=== PATIENT | female | born 1975 | race Caucasian/White ===

== ENCOUNTER 2018-02-17 20:44 | Emergency (ER) | payer MEDICARE, MEDICAID ==
--- NOTE | 2018-02-17 22:08 | EDM.PDOC ---
ED HPI GENERAL MEDICAL PROBLEM - General Chief Complaint: Genitourinary Problem Stated Complaint: CATH Time Seen by Provider: 02/17/18 21:20 Source of Information: Reports: Patient, RN Notes Reviewed - History of Present Illness INITIAL COMMENTS - FREE TEXT/NARRATIVE: 43-year-old female paraplegic who self catheterizes on a regular basis is having difficulty getting the catheter to enter into the bladder. She has had some moderate difficulties over the past few weeks, and an evaluation at [facility] recently showed some foreign material in the bladder felt to be blood clots. She was on an antibiotic and it seemed to be better, she catheterized herself at 2:30 this afternoon without problem, but this evening she cannot get the catheter into the bladder. She has no symptoms because she cannot feel anything below the chest level. No fevers or chills. Onset: Unknown/Unsure Associated Symptoms: Denies: Fever/Chills, Nausea/Vomiting, Shortness of Breath - Related Data Allergies Allergy/AdvReac Type Severity Reaction Status Date / Time No Known Allergies Allergy Verified 02/17/18 21:16 Home Meds: Home Meds NK [No Known Home Meds] 02/17/18 [History] Past Medical History HEENT History: Reports: Impaired Vision Gastrointestinal History: Reports: Hemorrhoids, Other (See Below) Other Gastrointestinal History: ronaldo colon Genitourinary History: Reports: UTI, Recurrent, Other (See Below) Other Genitourinary History: self cath Musculoskeletal History: Reports: Fracture, Other (See Below) Other Musculoskeletal History: fx femur, tib fib paraplegic - Infectious Disease History Infectious Disease History: Reports: Chicken Pox - Past Surgical History Musculoskeletal Surgical History: Reports: Other (See Below) Other Musculoskeletal Surgeries/Procedures:: back surgery Social & Family History - Tobacco Use Smoking Status *Q: Never Smoker Second Hand Smoke Exposure: No - Caffeine Use Caffeine Use: Reports: Coffee - Recreational Drug Use Recreational Drug Use: No ED ROS GENERAL - Review of Systems Review Of Systems: See Below Constitutional: Denies: Fever, Chills HEENT: Reports: No Symptoms Respiratory: Denies: Shortness of Breath, Cough Cardiovascular: Denies: Chest Pain Neurological: Reports: Other (Complete loss of nerve function below T6) ED EXAM, RENAL/ - Physical Exam Exam: See Below Exam Limited By: No Limitations General Appearance: Alert, No Apparent Distress Head: Atraumatic Respiratory/Chest: No Respiratory Distress, Lungs Clear GI/Abdominal: Normal Bowel Sounds, Other (She cannot feel any palpation of the abdomen or the groin area) (Female) Exam: Normal External Exam Course - Vital Signs Last Recorded V/S: Last Vital Signs Temp 96.4 F 02/17/18 21:14 Pulse 78 02/17/18 21:14 Resp 18 02/17/18 21:14 BP 143/69 H 02/17/18 21:14 Pulse Ox 100 02/17/18 21:14 - Orders/Labs/Meds Orders: Active Orders 24 hr Category Date Time Status Bladder Scan [RC] ONETIME Care 02/17/18 21:30 Active - Re-Assessments/Exams Free Text/Narrative Re-Assessment/Exam: 02/17/18 23:38 The vaginal anatomy looks appropriate. After several attempts at passing a catheter through the urethra by nursing and myself including a mini in and out catheter which is more sturdy, we could not penetrate into the bladder and get any urine out. A bladder scan at that time revealed 260 mL of bladder urine. Phone consultation with urology at [place] was done, the patient is going to reduce oral intake of fluids tonight and recheck with urology either in [facility] or just go on to [facility] and be rechecked there. Departure - Departure Time of Disposition: 22:20 Disposition: Home, Self-Care 01 Condition: Good Clinical Impression: Retention of urine - Discharge Information Instructions: Acute Urinary Retention, Female Referrals: PCP,None [Primary Care Provider] - Forms: ED Department Discharge Care Plan Goals: Fluid restriction is recommended until seen by a urologist, preferably at [facility] tomorrow. Stop at [facility] in route if you feel you need to be seen sooner. - My Orders Last 24 Hours: My Active Orders 02/17/18 21:30 Bladder Scan [RC] ONETIME - Assessment/Plan Last 24 Hours: My Active Orders 02/17/18 21:30 Bladder Scan [RC] ONETIME
== END 2018-02-17 22:20 | disposition home or self-care (01) ==
LOC: JP.ED 20:44
DX: R33.9 Retention of urine, unspecified (principal)
CPT/HCPCS: 51798; 99282-25

== ENCOUNTER 2019-09-03 19:45 | Emergency (ER) | payer MEDICAID, MEDICARE ==
--- NOTE | 2019-09-03 21:03 | EDM.PDOC ---
ED HPI GENERAL MEDICAL PROBLEM - General Chief Complaint: Genitourinary Problem Stated Complaint: BLADDER PROBLEM Time Seen by Provider: 09/03/19 20:45 Source of Information: Reports: Patient, RN History Limitations: Reports: Other (minimal records, from out of town.) - History of Present Illness INITIAL COMMENTS - FREE TEXT/NARRATIVE: 44 yo female with a chronic indwelling restrepo and who is from the [facility] presents with urine leaking from around her catheter. Wants us to take her catheter out and give her a restrepo so she can straight cath herself. Used to intermittent catheterize herself, but apparently develped some scar tissue that made if very hard to continue doing this so now has the indwelling catheter. Denies fever. Does not think she has a UTI. Is visiting relatives in the area and is here in the area often. 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: Reports: Other (see below) (none) - Related Data Allergies Allergy/AdvReac Type Severity Reaction Status Date / Time No Known Allergies Allergy Verified 09/03/19 20:02 Home Meds: Home Meds NK [No Known Home Meds] 02/17/18 [History] Past Medical History HEENT History: Reports: Impaired Vision Gastrointestinal History: Reports: Hemorrhoids, Other (See Below) Other Gastrointestinal History: ronaldo colon Genitourinary History: Reports: Urinary Incontinence, UTI, Recurrent, Other ( See Below) Other Genitourinary History: self cath Musculoskeletal History: Reports: Fracture, Other (See Below) Other Musculoskeletal History: fx femur, tib fib paraplegic Hematologic History: Reports: Anemia, Iron Deficiency - Infectious Disease History Infectious Disease History: Reports: Chicken Pox - Past Surgical History Musculoskeletal Surgical History: Reports: Other (See Below) Other Musculoskeletal Surgeries/Procedures:: back surgery Social & Family History - Tobacco Use Smoking Status *Q: Never Smoker - Caffeine Use Caffeine Use: Reports: Coffee - Recreational Drug Use Recreational Drug Use: No ED ROS GENERAL - Review of Systems Review Of Systems: ROS reveals no pertinent complaints other than HPI. Constitutional: Reports: No Symptoms : Reports: Other (leaking around restrepo catheter) ED EXAM, RENAL/ - Physical Exam Exam: See Below Exam Limited By: No Limitations General Appearance: Alert, WD/WN, No Apparent Distress Eye Exam: Bilateral Eye: Normal Inspection Ears: Hearing Grossly Normal Nose: Normal Inspection, No Blood Throat/Mouth: Normal Inspection, Normal Voice, No Airway Compromise Head: Atraumatic, Normocephalic (Female) Exam: Other (Restrepo catheter present with urine in her bag) Neurological: Alert, Oriented, CN II-XII Intact, Normal Cognition Psychiatric: Normal Affect, Normal Mood Skin Exam: Warm, Dry, Intact, Normal Color, No Rash Course - Vital Signs Last Recorded V/S: Last Vital Signs Temp 36.9 C 09/03/19 20:04 Pulse 103 H 09/03/19 20:04 Resp 16 09/03/19 20:04 BP 113/58 L 09/03/19 20:04 Pulse Ox 99 09/03/19 20:04 - Orders/Labs/Meds Orders: Active Orders 24 hr Category Date Time Status CULTURE URINE [RM] Stat Lab 09/03/19 20:55 Received Labs: Laboratory Tests 09/03/19 Range/Units 20:42 Urine Color Yellow (YELLOW) Urine Appearance Cloudy A (CLEAR) Urine pH 7.5 (5.0-8.0) Ur Specific [place] 1.015 (1.008-1.030) Urine Protein Negative (NEGATIVE) mg/dL Urine Glucose (UA) Negative (NEGATIVE) mg/dL Urine Ketones Negative (NEGATIVE) mg/dL Urine Occult Blood Negative (NEGATIVE) Urine Nitrite Positive H (NEGATIVE) Urine Bilirubin Negative (NEGATIVE) Urine Urobilinogen 0.2 (0.2-1.0) EU/dL Ur Leukocyte Esterase Moderate H (NEGATIVE) Urine RBC 0-5 (0-5) Urine WBC 5-10 H (0-5) Ur Epithelial Cells Rare Amorphous Sediment Not seen Urine Bacteria Many Urine Mucus Not seen Departure - Departure Time of Disposition: 21:36 Disposition: Home, Self-Care 01 Condition: Good Clinical Impression: Restrepo catheter problem Qualifiers: Encounter type: initial encounter Qualified Code(s): T83.9XXA - Unspecified complication of genitourinary prosthetic device, implant and graft, initial encounter - Discharge Information *PRESCRIPTION DRUG MONITORING PROGRAM REVIEWED*: No *COPY OF PRESCRIPTION DRUG MONITORING REPORT IN PATIENT JOSEFINA: No Instructions: Clean Intermittent Catheterization, Female Referrals: PCP,None [Primary Care Provider] - Forms: ED Department Discharge Additional Instructions: Return as needed. Make sure you have a way to catheterize yourself in manor that you do not give yourself an infection, ie., clean your catheter sufficiently before use. Your urine has been cultured, you will be contacted if the culture suggests infection. - My Orders Last 24 Hours: My Active Orders 09/03/19 20:55 CULTURE URINE [RM] Stat - Assessment/Plan Last 24 Hours: My Active Orders 09/03/19 20:55 CULTURE URINE [RM] Stat
== END 2019-09-03 21:40 | disposition home or self-care (01) ==
LOC: JP.ED 19:45
DX: T83.031A Leakage of indwelling urethral catheter, initial encounter (principal)
CPT/HCPCS: 81001; 87086; 87088; 87186; 99282

== ENCOUNTER 2021-10-08 18:51 | Emergency (ER) | payer MEDICARE, MEDICAID ==
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
[2021-10-08] MEDS ORDERED: OLANZapine 5 MG Tab PO ONE (23:41)
[2021-10-09] MEDS ORDERED: OLANZapine 5 MG Tab PO SCH (21:00)
[2021-10-10] MEDS ORDERED: Acetaminophen 325 MG Tab PO PRN (11:42)
== END 2021-10-10 16:05 | disposition home or self-care (01) ==
LOC: JP.ED 18:51
DX: L89.324 Pressure ulcer of left buttock, stage 4 (principal); F22 Delusional disorders; F31.9 Bipolar disorder, unspecified; Z20.822 Contact with and (suspected) exposure to COVID-19; Z91.19 Patient's noncompliance with other medical treatment and regimen
CPT/HCPCS: 99284; A9270; U0002

== ENCOUNTER 2022-07-06 10:09 | Emergency (ER) | payer MEDICARE, MEDICAID ==
[2022-07-06] MEDS ORDERED: OLANZapine 5 MG Tab PO ONE (10:19)
[2022-07-06 11:01] LABS: ESTIMATED GFR 124 mL/min (>60)
[2022-07-07] MEDS ORDERED: Bisacodyl 10 MG Supp RECTAL PRN (06:33)
[2022-07-07] MEDS: ARIPiprazole 10 MG Tab PO SCH (15:21)
[2022-07-07] MEDS: Polyethylene Glycol 3350 Powder 17 GM Packet PO SCH (15:21)
[2022-07-07] MEDS ORDERED: LORazepam 0.5 MG Tab PO ONE (17:59)
[2022-07-07] MEDS ORDERED: Ketorolac 10 MG Tab PO ONE ×2 (17:59→21:48)
[2022-07-07 18:40] LABS: TROPONIN I HIGH SENSITIVITY 5.6 pg/mL (<=60.3)
[2022-07-07] MEDS: OLANZapine 5 MG Tab PO SCH (20:52)
[2022-07-08] MEDS: Polyethylene Glycol 3350 Powder 17 GM Packet PO SCH (10:17)
[2022-07-08] MEDS: ARIPiprazole 10 MG Tab PO SCH (10:17)
[2022-07-08] MEDS: OLANZapine 5 MG Tab PO SCH (21:16)
[2022-07-09] MEDS: Polyethylene Glycol 3350 Powder 17 GM Packet PO SCH (09:03)
[2022-07-09] MEDS: ARIPiprazole 10 MG Tab PO SCH (09:03)
[2022-07-09] MEDS: Ibuprofen 400 MG Tab PO PRN (15:11)
[2022-07-09] MEDS: OLANZapine 5 MG Tab PO SCH (20:30)
[2022-07-10] MEDS: ARIPiprazole 10 MG Tab PO SCH (09:48)
[2022-07-10] MEDS: Polyethylene Glycol 3350 Powder 17 GM Packet PO SCH (09:48)
[2022-07-10] MEDS: Ibuprofen 400 MG Tab PO PRN ×2 (11:35→20:14)
[2022-07-10] MEDS: OLANZapine 5 MG Tab PO SCH (20:14)
[2022-07-11] MEDS: Ibuprofen 400 MG Tab PO PRN ×2 (05:51→13:51)
[2022-07-11] MEDS: Polyethylene Glycol 3350 Powder 17 GM Packet PO SCH (08:58)
[2022-07-11] MEDS: ARIPiprazole 10 MG Tab PO SCH (08:58)
[2022-07-11] MEDS: OLANZapine 5 MG Tab PO SCH (23:15)
[2022-07-12] MEDS: Ibuprofen 400 MG Tab PO PRN ×2 (02:50→18:03)
[2022-07-12] MEDS: ARIPiprazole 10 MG Tab PO SCH (09:57)
[2022-07-12] MEDS: Polyethylene Glycol 3350 Powder 17 GM Packet PO SCH (09:57)
[2022-07-12] MEDS: OLANZapine 5 MG Tab PO SCH (21:04)
[2022-07-13] MEDS: Ibuprofen 400 MG Tab PO PRN ×2 (08:25→18:53)
[2022-07-13] MEDS: ARIPiprazole 10 MG Tab PO SCH (08:25)
[2022-07-13] MEDS: Polyethylene Glycol 3350 Powder 17 GM Packet PO SCH (08:25)
[2022-07-13] MEDS: OLANZapine 5 MG Tab PO SCH (20:58)
== END 2022-07-13 21:33 | disposition home or self-care (01) ==
LOC: JP.ED 10:09
DX: F22 Delusional disorders (principal); F31.12 Bipolar disorder, current episode manic without psychotic features, moderate; L89.324 Pressure ulcer of left buttock, stage 4; R33.9 Retention of urine, unspecified; Z91.14 Patient's other noncompliance with medication regimen; Z79.899 Other long term (current) drug therapy; Z20.822 Contact with and (suspected) exposure to COVID-19
CPT/HCPCS: 36415; 80048; 80053; 80305; 81001; 84443; 84484; 85025; 85379; 87070; 87077; 87205; 93005; 93010; 99285; A9270; U0002